=== PATIENT | male | born 1980 | race Caucasian/White ===

== ENCOUNTER 2023-01-24 12:59 | Outpatient (CLI) | payer OTHER ==
--- NOTE | 2023-01-24 15:33 | XRAY Report ---
PROCEDURE: Lumbar Spine 2View INDICATIONS: LUMBAR RADICULOPATHY,RIGHT TECHNIQUE: 2 views of the lumbar spine were acquired. COMPARISON: None. FINDINGS: Bones: 5 [id number] vertebrae are present. There is normal bony alignment. No vertebral body compression fractures. No suspicious bony lesions. Mild degenerative disc disease at L4-L5 and L5-S 1. Moderate facet arthropathy at L5-S1. Soft tissues: Overlying bowel gas pattern is normal. No suspicious soft tissue calcifications. IMPRESSION: 1. Degenerative disc and facet disease in lumbar spine as described. Consider MRI for further evaluat ion. Reviewed by: Leif Wyman MD on 01/24/2023 3:32 PM PDT Approved by: Leif Wyman MD on 01/24/2023 3:32 PM PDT Station ID: [id number]
== END 2023-01-24 13:00 | disposition home or self-care (01) ==
LOC: DI 12:59
PROVIDERS: ATTEND Registered Nurse
DX: M47.26 Other spondylosis with radiculopathy, lumbar region (principal); M51.16 Intervertebral disc disorders with radiculopathy, lumbar region